=== PATIENT | female | born 2000 | race Two or more races ===

== ENCOUNTER 2021-12-22 06:17 | Emergency (ER) | payer SELFPAY ==
[~2021-12-22] VITALS: Ht 162.6 cm; Wt 50.0 kg
--- NOTE | 2021-12-22 06:32 | PHYS DOC ---
Past Medical History Past Medical History: Hypothyroid, Uterine Fibroids Past Surgical History: Smoking Status: Never Smoker Alcohol Use: None Drug Use: None General Adult EDM: Chief Complaint: ABDOMINAL PAIN HPI: HPI: Patient is a 21 year old female who presents with 5-day history of right upper quadrant abdominal pain. The pain is intermittent, often worse after eating. She has no severe pain at present. She initially reported no nausea or vomiting symptoms, but shortly after arrival, she reported some nausea. She reports 1 episodes of diarrhea. She denies urinary symptoms. She has had some irregular menses in the past, and about 2 months ago she started oral contraceptives, and she has had some intermittent irregular bleeding, though she denies any active vaginal bleeding at this time. She denies lower abdominal pain or pelvic pain. She denies fevers or chills. She does not have an appetite. She has had 2 previous C-sections, no other abdominal surgeries. She denies chest pain, cough, dyspnea. No rash reported. She has a physician in [place], and she is staying here with her father here in [facility], she is only been here about 2 weeks. Review of Systems: Review of Systems: Constitutional: Denies fever or chills. [] Respiratory: Denies cough or shortness of breath. [] Cardiovascular: Denies chest pain or edema. [] GI: Right upper quadrant abdominal pain, nausea, no vomiting, one episode of diarrhea. : Denies urinary symptoms or pelvic pain. Denies vaginal bleeding or discharge Musculoskeletal: Denies back pain or joint pain. [] Integument: Denies rash. [] Neurologic: Denies headache or weakness Psychiatric: Denies depression or anxiety. [] Heart Score: C/O Chest Pain: No Risk Factors: Risk Factors: DM, Current or recent (<one month) smoker, HTN, HLP, family history of CAD, obesity. Risk Scores: Score 0 - 3: 2.5% MACE over next 6 weeks - Discharge Home Score 4 - 6: 20.3% MACE over next 6 weeks - Admit for Clinical Observation Score 7 - 10: 72.7% MACE over next 6 weeks - Early Invasive Strategies Allergies: Allergies: Allergies Coded Allergies Type Severity Reaction Last Updated Verified No Known Drug Allergies 12/22/21 No Physical Exam: PE: Constitutional: Well developed, well nourished, no acute distress, non-toxic appearance. [] HENT: Normocephalic, atraumatic, mucus membranes are moist. Eyes: Conjunctiva normal, no discharge. Sclera are anicteric. Neck: Normal range of motion, no tenderness, supple, no stridor. [] Cardiovascular:Heart rate regular rhythm, +2 radial and +2 posterior tibial pulses bilaterally, no edema, warm and well-perfused Lungs & Thorax: Bilateral breath sounds clear to auscultation, no rales, rhonchi or wheeze Abdomen: Abdomen is soft, nondistended, mild to moderate right upper quadrant tenderness to palpation, mild epigastric tenderness, no rebound tenderness, no guarding, negative Gibbs's, no lower abdominal tenderness, no palpable pu lsatile mass, no audible bruit, normal bowel sounds, no palpable masses organomegaly, no CVA tenderness Skin: Warm, dry, no erythema, no rash. No jaundice. Back: No tenderness, no CVA tenderness. [] Extremities: No tenderness, no cyanosis, no clubbing, ROM intact, no edema. [] Neurologic: She is awake, alert, fully oriented, ambulatory with a steady gait, speech is clear and fluent, grossly normal motor function, grossly normal sensory, no facial asymmetry Psychologic: Affect normal, judgement normal, mood normal. [] Current Patient Data: Vital Signs: Vital Signs Date Time Temp Pulse Resp B/P (MAP) Pulse Ox O2 Delivery O2 Flow Rate FiO2 12/22/21 06:22 98.1 125 18 122/72 (89) 100 Room Air 98.1 EKG: EKG: [] Radiology/Procedures: Radiology/Procedures: IMAGING REPORT Signed PATIENT: Clare VasquezACCOUNT: [id number] : 2000 LOCATION: ER AGE: 21 SEX: F EXAM STATUS: REG ER ORD. PHYSICIAN: ZIGGY ROSAS DO REASON: right upper quadrant pain PROCEDURE: ABDOMEN LTD EXAM: ULTRASOUND ABDOMEN LIMITED CLINICAL HISTORY: Right upper quadrant abdominal pain, nausea FINDINGS: Imaged pancreas, upper abdominal aorta and upper abdominal IVC are normal. No gallstones. No inflammatory changes of the gallbladder. No biliary ductal dilation the common bile duct is normal with a diameter of 2 mm. Normal liver echogenicity. No liver mass evident. No changes of liver cirrhosis evident. Right renal length 10.7 cm. Limited visualization of the right renal lower pole due to bowel gas shadowing. No mass or hydronephrosis of the right kidney evident. Spleen and left kidney were not evaluated. IMPRESSION: Normal exam. Electronically signed by: Keira Ortiz MD (12/22/2021 8:45 AM) [id number] DICTATED and SIGNED BY: KEIRA ORTIZ MD DATE: 12/22/21 [id number] 0 IMAGING REPORT Signed PATIENT: Clare VasquezACCOUNT: [id number] : 2000 LOCATION: ER AGE: 21 SEX: F EXAM STATUS: REG ER ORD. PHYSICIAN: ZIGGY ROSAS DO REASON: right sided abdominal pain PROCEDURE: CT ABD PELV W/ IV CONTRST ONLY EXAM: Abdomen and pelvis CT with intravenous contrast. HISTORY: Right-sided pain. TECHNIQUE: Computed tomographic images of the abdomen and pelvis were obtained following the administration of intravenous contrast. Multiplanar reformatting was performed. *One or more of the following individualized dose reduction techniques were utilized for this examination: 1. Automated exposure control. 2. Adjustment of the mA and/or kV according to patient size. 3. Use of iterative reconstruction technique. COMPARISON: None. FINDINGS: Evaluation of the lower thorax is unremarkable. No hepatic lesion is seen. The gallbladder, pancreas, spleen, adrenal glands and kidneys are unremarkable. There is no evidence of appendicitis. There is no evidence of bowel structure or abnormal bowel wall thickening. The uterus is retroverted. There is a small amount of pelvic free fluid and there are multiple ovarian follicles, within normal limits for a premenopausal female. There is no lymphadenopathy. The aorta is normal in caliber. There is a transitional lumbosacral segment, a normal variant. 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 IMPRESSION: 1. No evidence of appendicitis. 2. Small amount of pelvic free fluid, within physiologic limits for a female patient of this age. Electronically signed by: Abril Cuevas MD (12/22/2021 9:47 AM) [facility] DICTATED and SIGNED BY: ABRIL CUEVAS MD DATE: 12/22/21 [id number] 0 Course & Med Decision Making: Course & Med Decision Making Pertinent Labs and Imaging studies reviewed. (See chart for details) The patient is given IV fluids. She is given a dose of IV Zofran. She reports that she does not feel any significant pain, thus she declines pain medicine. Imaging studies were found to be unremarkable. Laboratory exams are unremarkable as well. She is resting comfortably, smiling, she reports no active pain at this time. I discussed the findings, differential diagnosis and plan of care with the patient as well as with her father. Since she will be moving to this country permanently, she is given outpatient resources to establish primary care physician. I recommend that she eat a bland diet, avoid any greasy, spicy or very salty foods. She may ultimately require outpatient referral for GI services. Return precautions are given. She verbalizes understanding. Cora Disclaimer: Cora Disclaimer: This electronic medical record was generated, in whole or in part, using a voice recognition dictation system. Departure Departure Impression: Primary Impression: Right upper quadrant abdominal pain Additional Impression: Nausea Disposition: 01 HOME / SELF CARE / HOMELESS Condition: STABLE Patient Instructions: Abdominal Pain (Nonspecific), Nausea, Adult Additional Instructions: Use the medication as needed for your nausea. You may take [id number] Tylenol or ibuprofen for pain. Return to the ER immediately for uncontrolled vomiting, more severe pain, if you develop a temperature of 100.4 or higher, if you develop any jaundice, which would be yellowing of the skin or eyes. If you develop any signs of dehydration, chest pain, shortness of breath or any other concerns, you should also return. Eat a bland diet, drink plenty of fluids. You are given information for follow-up so he can establish care with a primary care doctor [place] the [place] [facility] Ondansetron Hcl (ONDANSETRON HCL) 4 Mg Tablet 1 TAB PO PRN Q6HRS for vomiting, #20 TAB 1 Refill Prov: ZIGGY ROSAS DO 12/22/21 ZIGGY ROSAS DO Dec 22, 2021 06:32
[2021-12-22 07:29] LABS: BASO % 1 % (0-3); EOS # 0.1 x10^3/uL (0.0-0.7); EOS % 1 % (0-3); HEMATOCRIT 42.6 % (36.0-47.0); HEMOGLOBIN 14.7 g/dL (12.0-15.5); LYMPH # 0.8 x10^3/uL (1.0-4.8); LYMPH % 10 % (24-48); MEAN CORPUSCULAR HEMOGLOBIN 30 pg (25-35); MEAN CORPUSCULAR HGB CONC 34 g/dL (31-37); MEAN CORPUSCULAR VOLUME 88 fL (79-100); MONO # 0.5 x10^3/uL (0.0-1.1); MONO % 6 % (0-9); NEUT # 7.1 x10^3/uL (1.8-7.7); NEUT % 83 % (31-73); PLATELET COUNT 197 x10^3/uL (140-400); RED BLOOD COUNT 4.82 x10^6/uL (3.50-5.40); RED CELL DISTRIBUTION WIDTH 12.9 % (11.5-14.5); WHITE BLOOD COUNT 8.5 x10^3/uL (4.0-11.0)
[2021-12-22] MEDS ORDERED: IV NORMAL SALINE 1000ML BAG 1,000 ML IV ONE (07:30)
[2021-12-22] MEDS ORDERED: ONDANSETRON PF 4 MG/2 ML VIAL. IVP ONE (07:30)
[2021-12-22 07:31] LABS: BILIRUBIN,URINE NEGATIVE (NEG); CLARITY,URINE CLEAR; COLOR,URINE YELLOW; NITRITE,URINE NEGATIVE (NEG); PH,URINE 5.5 (<5.0-8.0); PROTEIN,URINE NEGATIVE (NEG-TRACE); UROBILINOGEN,URINE 0.2 mg/dL (0.2 mg/dL)
[2021-12-22 07:39] LABS: CALCIUM 8.6 mg/dL (8.5-10.1); CREATININE 0.7 mg/dL (0.6-1.0); GFR 105.6; POTASSIUM 3.8 mmol/L (3.5-5.1)
[2021-12-22 07:44] LABS: ALBUMIN 3.8 g/dL (3.4-5.0); TOTAL BILIRUBIN 0.4 mg/dL (0.2-1.0); TOTAL PROTEIN 7.8 g/dL (6.4-8.2)
[2021-12-22 07:44] LABS: BACTERIA,URINE FEW /HPF (0-FEW); RBC,URINE OCC /HPF (0-2); WBC,URINE OCC /HPF (0-4)
--- NOTE | 2021-12-22 08:47 | RAD ---
EXAM: ULTRASOUND ABDOMEN LIMITED CLINICAL HISTORY: Right upper quadrant abdominal pain, nausea FINDINGS: Imaged pancreas, upper abdominal aorta and upper abdominal IVC are normal. No gallstones. No inflammatory changes of the gallbladder. No biliary ductal dilation the common bile duct is normal with a diameter of 2 mm. Normal liver echogenicity. No liver mass evident. No changes of liver cirrhosis evident. Right renal length 10.7 cm. Limited visualization of the right renal lower pole due to bowel gas shad owing. No mass or hydronephrosis of the right kidney evident. Spleen and left kidney were not evaluated. IMPRESSION: Normal exam. Electronically signed by: Ajay Ortiz MD (12/22/2021 8:45 AM) [id number]
[2021-12-22] MEDS ORDERED: CONTRAST GIVEN. MC PRN (09:30)
[2021-12-22] MEDS ORDERED: IOHEXOL 300 MG/ML 100ML VIAL. IV ONE (09:30)
--- NOTE | 2021-12-22 09:50 | RAD ---
EXAM: Abdomen and pelvis CT with intravenous contrast. HISTORY: Right-sided pain. TECHNIQUE: Computed tomographic images of the abdomen and pelvis were obtained following the administ ration of intravenous contrast. Multiplanar reformatting was performed. *One or more of the following individualized dose reduction techniques were utilized for this examina tion: 1. Automated exposure control. 2. Adjustment of the mA and/or kV according to patient size. 3. Use of iterative reconstruction technique. COMPARISON: None. FINDINGS: Evaluation of the lower thorax is unremarkable. No hepatic lesion is seen. The gallbladder, pancreas, spleen, adrenal glands and kidneys are unremarkable. There is no evidence of appendicitis. There is no evidence of bowel structure or abnormal bowel wall thickening. The uterus is retroverted . There is a small amount of pelvic free fluid and there are multiple ovarian follicles, within ree l limits for a premenopausal female. There is no lymphadenopathy. The aorta is normal in caliber. The re is a transitional lumbosacral segment, a normal variant. There are incidentally congenitally nonfu sed posterior elements of the sacral level. IMPRESSION: 1. No evidence of appendicitis. 2. Small amount of pelvic free fluid, within physiologic limits for a female patient of this age. Electronically signed by: Abril Morris MD (12/22/2021 9:47 AM) [facility]
[2021-12-22 10:10] VITALS: BP 106/64
[2021-12-22] MEDS ORDERED: ONDA-84 PO (10:20)
== END 2021-12-22 10:30 | disposition home or self-care (01) ==
LOC: ER 06:17
DX: R10.11 Right upper quadrant pain (principal); R11.0 Nausea; R19.7 Diarrhea, unspecified; E03.9 Hypothyroidism, unspecified
CPT/HCPCS: 36415; 74177; 76705; 80053; 81001; 81025; 83690; 85025; 96361; 96374; 99285; J2405; J7030; Q9967